=== PATIENT | male | born 1950 | race Caucasian/White ===

== ENCOUNTER → 2021-06-02 02:55 | Outpatient (CLI) | payer MEDICARE, SELFPAY ==
[2021-06-02 18:35] LABS: SARS-CoV-2 RNA PCR Negative
== END ==
DX: Z20.822 Contact with and (suspected) exposure to COVID-19 (principal)
CPT/HCPCS: C9803; U0003; U0005

== ENCOUNTER 2022-06-12 14:53 | Emergency (ER) | payer MEDICARE, SELFPAY ==
[2022-06-12 15:03] VITALS: BP 113/78; PULSE 79; RESP 20; TEMP 36.5; O2SAT 100
== END 2022-06-12 15:37 | disposition left against medical advice (07) ==
LOC: EXPBETH 14:58
PROVIDERS: Emergency Provider Nurse Practitioner
DX: Z53.21 Procedure and treatment not carried out due to patient leaving prior to being seen by health care provider (principal)
CPT/HCPCS: 99199